=== PATIENT | female | born 1960 | race African-American/Black ===

== ENCOUNTER 2017-01-14 13:56 | Emergency (ER) | payer MEDICAID, MEDICARE ==
[~2017-01-14] VITALS: Ht 157.5 cm; Wt 68.0 kg
[~2017-01-14 13:56] MED LIST: CILOXAN 0.3% O1 DROP RIGHT EYE; HYDROCODON-ACE1 EA15 ORAL; IBUPROFEN600 MG ORAL; NKM; NORCO 5-325 TA1 EACH ORAL
[2017-01-14] MEDS ORDERED: DiphenhydrAMINE 50mg/ml Inj IVP ONE (14:15)
[2017-01-14] MEDS ORDERED: Metoclopramide 10mg/2ml Inj IVP ONE (14:15)
[2017-01-14] MEDS ORDERED: Thiamine HCl 100 MG in D5W 55 ML IVPB SCH (14:15)
[2017-01-14] MEDS ORDERED: Ketorolac 30mg Inj IV ONE (14:15)
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
[2017-01-14] MEDS ORDERED: Thiamine HCl 100mg/ml 2 ml Inj ONE (14:46)
[2017-01-14 15:11] LABS: ANION GAP 13 mmol/L (5-15); CALCIUM 9.4 MG/DL (8.5-10.1); CARBON DIOXIDE 27 MMOL/L (21-32); CHLORIDE 102 MMOL/L (98-107); CREATININE 0.9 MG/DL (0.55-1.30); GLOMERULAR FILTRATION RATE > 60 mL/min (>60); POTASSIUM 3.8 MMOL/L (3.5-5.1); SODIUM 142 MMOL/L (136-145)
[2017-01-14 15:12] LABS: BASOPHILS % (AUTO) 1.7 % (0.0-2.0); EOSINOPHILS % (AUTO) 3.3 % (0.0-3.0); LYMPHOCYTES % (AUTO) 26.5 % (20.0-45.0); MEAN CORPUSCULAR HEMOGLOBIN 29.7 PG (27.0-31.0); MEAN CORPUSCULAR HGB CONC 34.7 G/DL (32.0-36.0); MEAN CORPUSCULAR VOLUME 86 FL (80-99); MEAN PLATELET VOLUME 10.3 FL (6.5-10.1); MONOCYTES % (AUTO) 8.8 % (1.0-10.0); NEUTROPHILS % (AUTO) 59.6 % (45.0-75.0); PLATELET COUNT 150 K/UL (150-450); RED CELL DISTRIBUTION WIDTH 11.8 % (11.6-14.8); WHITE BLOOD COUNT 9.1 K/UL (4.8-10.8)
[2017-01-14 15:14] LABS: ALANINE AMINOTRANSFERASE 17 U/L (12-78); ALCOHOL 229 mg/dL; ASPARTATE AMINO TRANSFERASE 29 U/L (15-37)
[2017-01-14 15:27] VITALS: BP 148/98
[2017-01-14 15:48] LABS: TOTAL PROTEIN 8.1 G/DL (6.4-8.2)
[2017-01-14 15:49] LABS: ACETAMINOPHEN < 2 MCG/ML (10-30)
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
[2017-01-14] MEDS ORDERED: PEPCID20 MG ORAL (18:07)
[2017-01-14] MEDS ORDERED: IBUPROFEN600 MG ORAL (18:07)
[2017-01-14] MEDS ORDERED: TYLENOL325 MG ORAL (18:07)
[2017-01-14 19:30] VITALS: BP 140/91
[2017-01-14 19:43] VITALS: BP 148/98
== END 2017-01-14 19:43 | disposition home or self-care (01) ==
LOC: EDBD 13:56 → EMR 14:08
DX: S32.009A Unspecified fracture of unspecified lumbar vertebra, initial encounter for closed fracture (principal); S00.81XA Abrasion of other part of head, initial encounter; Y04.2XXA Assault by strike against or bumped into by another person, initial encounter; Y92.89 Other specified places as the place of occurrence of the external cause; F10.129 Alcohol abuse with intoxication, unspecified; F14.10 Cocaine abuse, uncomplicated; J44.9 Chronic obstructive pulmonary disease, unspecified
CPT/HCPCS: 36415; 72131; 80053; 80307; 82550; 85025; 85610; 85730; 96361; 96365; 96375; 99284; G0480; J1200; J1885; J2765; 80329